=== PATIENT | female | born 1965 | race Caucasian/White ===

== ENCOUNTER 2017-11-29 19:07 | Emergency (ER) | payer OTHER ==
[2017-11-29] MEDS ORDERED: Sodium Chloride 0.9% 1,000 ML IV ONE (19:53)
[2017-11-29] MEDS ORDERED: HYDROmorphone 1 mg/mL 1mL Syr IVP STA ×2 (19:54→22:31)
--- NOTE | 2017-11-29 20:01 | ED Physician Chart ---
ED Chief Complaint/HPI - Patient Information Date Seen:: 11/29/17 Time Seen:: 19:45 Chief Complaint:: headache History of Present Illness:: 2-1/2 days ago patient developed a poking sensation in the right congregation. When she got pain all over the entire forehead. Then the pain moved to the entire right side of her head. She vomited 3 more times. She had no fever. Patient' s last equally severe headache was one week ago. Patient's current headache has the same pattern as her previous migraine headaches. Neither Toradol nor Imitrex have worked for her headaches in the past. She states she usually gets IV fluids, IV medication for nausea, and IV Dilaudid. Allergies:: Allergies Allergy/AdvReac Type Severity Reaction Status Date / Time Penicillins Allergy Verified 11/29/17 19:33 sulfamethoxazole Allergy Verified 11/29/17 19:33 Vitals:: Vital Signs - 8 hr 11/29/17 19:10 Temp 98.7 F HR 79 RR 18 BP 166/94 O2 Sat % 96 Historian:: Patient Review:: Nurse's Note Reviewed ED Review of Systems - Review of Systems General/Constitutional: No fever, No chills, No weight loss, No weakness, No diaphoresis, No edema, No loss of appetite Skin: No skin lesions, No rash, No bruising Head: No headache, No light-headedness Eyes: No loss of vision, No pain, No diplopia ENT: No earache, No nasal drainage, No sore throat, No tinnitus Neck: No neck pain, No swelling, No thyromegaly, No stiffness, No mass noted Cardio Vascular: No chest pain, No palpitations, No PND, No orthopnea, No edema Pulmonary: No SOB, No cough, No sputum, No wheezing GI: Nausea, Vomiting, No diarrhea, No pain, No melena, No hematochezia, No constipation, No hematemesis G/U: No dysuria, No frequency, No hematuria Musculoskeletal: No bone or joint pain, No back pain, No muscle pain Endocrine: No polyuria, No polydipsia Psychiatric: No prior psych history, No depression, No anxiety, No suicidal ideation Hematopoietic: No bruising, No lymphadenopathy Allergic/Immuno: No urticaria, No angioedema Neurological: No syncope, No focal symptoms, No weakness, No paresthesia, No headache, No seizure, No dizziness, No confusion, No vertigo ED Past Medical History - Past Medical History Past Medical History: HTN, Other (migraine headaches; depression; anxiety; migraine headache induced hypertension) Family History: Diabetes Melitus, Other (depression) Social History: Non Smoker, No Alcohol Surgical History: Hysterectomy Psychiatricy History: Depression, Other (anxiety) Medication: Reviewed Family Medical History - Family Member Mother Hx Family Diabetes: Yes ED Physical Exam - Physical Examination General/Constitutional: Awake, Well-developed, well-nourished, Alert, No distress, GCS 15, Non-toxic appearing, Ambulatory Head: Atraumatic Eyes: Lids, conjuctiva normal, PERRL, EOMI Other Eyes comments:: Optic disc appears sharp although difficult to visualize secondary to photophobia Skin: Nl inspection, No rash, No skin lesions, No ecchymosis, Well hydrated, No lymphadenopathy ENMT: External ears, nose nl, Nasal exam nl, Lips, teeth, gums nl Neck: Nontender, Full ROM w/o pain, No JVD, No nuchal rigidity, No bruit, No mass, No stridor Respiratory: Nl effort/Exclusion, Clear to Auscultation, No Wheeze/Rhonchi/Rales Cardio Vascular: RRR, No murmur, gallop, rubs, NL S1 S2 GI: No tenderness/rebounding/guarding, No organomegaly, No hernia, Normal BS's, Nondistended, No mass/bruits, No McBurney tenderness : No CVA tenderness Extremities: No tenderness or effusion, Full ROM, normal strength in all extremities, No edema, Normal digits & nails Neuro/Psych: Alert/oriented, DTR's symmetric, Normal sensory exam, Normal motor strength, Judgement/insight normal, Mood normal, Normal gait, No focal deficits Misc: Normal back, No paraspinal tenderness ED Labs/Radiology/EKG Results - Lab Results Comments:: At 2230 patient felt better but her headache was apparently still significant. I will give patient another 1 mg of IV Dilaudid and she will be discharged. Plan was to give the patient Decadron 8 mg intravenously to decrease the chance of headache recurrence but she says she's had Decadron before and it makes her feel weird. ED Septic Shock - . Is Septic Shock (SBP<90, OR Lactate>4 mmol\L) present?: No - <6hrs of presentation: Vital Signs: Vital Signs - 8 hr 11/29/17 19:10 Temp 98.7 F HR 79 RR 18 BP 166/94 O2 Sat % 96 ED Reassessment (Disposition) - Reassessment Reassessment Condition:: Improved - Diagnosis Diagnosis:: Migraine headache - Aftercare/Follow up Instructions Aftercare/Follow-Up Instructions:: Refer to Discharge Instructions - Patient Disposition Discharge/Transfer:: Home Condition at Disposition:: Stable, Improved
[2017-11-29] MEDS ORDERED: HYDROmorphone 1 mg/mL 1mL Syr ONE ×2 (21:26→22:33)
== END 2017-11-29 22:50 | disposition home or self-care (01) ==
LOC: ER 19:07
DX: G43.909 Migraine, unspecified, not intractable, without status migrainosus (principal); I10 Essential (primary) hypertension; Z90.710 Acquired absence of both cervix and uterus; Z88.0 Allergy status to penicillin; Z88.2 Allergy status to sulfonamides
CPT/HCPCS: 99284; 96374; 96375; 96376; J2405; J1170; J7030; Z7502

== ENCOUNTER 2018-01-16 20:04 | Emergency (ER) | payer OTHER ==
[2018-01-16] MEDS ORDERED: Sodium Chloride 0.9% 1,000 ML IV ONE (20:31)
--- NOTE | 2018-01-16 20:38 | ED Physician Chart ---
ED Chief Complaint/HPI - Patient Information Date Seen:: 01/16/18 Time Seen:: 20:00 Chief Complaint:: Headaches History of Present Illness:: onset x 3 days of intermittent, bilateral throbbing parietal H/As with N/V x 3; pt denies trauma, LOC, ALOC, AMS, decreased activity, visual or gait changes, E/ As, S/T, neck pain, weakness, dizziness, paresthesias, vertigo, cough, C/P, SOB , Abd. Pain, A/D/C, fever, chills, or urinary s/s Allergies:: Allergies Allergy/AdvReac Type Severity Reaction Status Date / Time Penicillins Allergy Verified 11/29/17 19:33 sulfamethoxazole Allergy Verified 11/29/17 19:33 Historian:: Patient Review:: Nurse's Note Reviewed ED Review of Systems - Review of Systems General/Constitutional: No fever, No chills, No weight loss, No weakness, No diaphoresis, No edema, No loss of appetite Skin: No skin lesions, No rash, No bruising Head: No headache, No light-headedness Eyes: No loss of vision, No pain, No diplopia ENT: No earache, No nasal drainage, No sore throat, No tinnitus Neck: No neck pain, No swelling, No thyromegaly, No stiffness, No mass noted Cardio Vascular: No chest pain, No palpitations, No PND, No orthopnea, No edema Pulmonary: No SOB, No cough, No sputum, No wheezing GI: Nausea, Vomiting, Diarrhea, No pain, No melena, No hematochezia, No constipation, No hematemesis G/U: No dysuria, No frequency, No hematuria, No nacturia Supervisor Photocomposition: No vaginal discharge, No abnormal vaginal bleed, No contraction Musculoskeletal: No bone or joint pain, No back pain, No muscle pain Endocrine: No polyuria, No polydipsia Psychiatric: No prior psych history, No depression, No anxiety, No suicidal ideation, No homicidal ideation, No auditory hallucination, No visual hallucination Hematopoietic: No bruising, No lymphadenopathy Allergic/Immuno: No urticaria, No angioedema Neurological: No syncope, No focal symptoms, No weakness, No paresthesia, Headache, No seizure, No dizziness, No confusion, No vertigo ED Past Medical History - Past Medical History Obtainable: Yes Past Medical History: Other (Migraine Headaches) Family History: HTN Social History: Non Smoker, No Alcohol, No Drug Use, Single Surgical History: None Psychiatricy History: None Medication: Reviewed Family Medical History - Family Member Mother Hx Family Diabetes: Yes ED Physical Exam - Physical Examination General/Constitutional: Awake, Well-developed, well-nourished, Alert, No distress, GCS 15, Non-toxic appearing, Ambulatory Head: Atraumatic Eyes: Lids, conjuctiva normal, PERRL, EOMI Other Eyes comments:: PERRLA; Fundi: benign; EOMs: WNL; Skin: Nl inspection, No rash, No skin lesions, No ecchymosis, Well hydrated, No lymphadenopathy ENMT: External ears, nose nl, TM canals nl, Nasal exam nl, Lips, teeth, gums nl , Oropharynx nl, Tonsils nl Other ENMT comments:: TMJs: WNL Neck: Nontender, Full ROM w/o pain, No JVD, No nuchal rigidity, No bruit, No mass, No stridor Other Neck comments:: Supple; no meningeal signs; no cervical tenderness; no bruits Respiratory: Nl effort/Exclusion, Clear to Auscultation, No Wheeze/Rhonchi/Rales Cardio Vascular: RRR, No murmur, gallop, rubs, NL S1 S2, Carotid/Femoral/Distal pulses equal bilaterally GI: No tenderness/rebounding/guarding, No organomegaly, No hernia, Normal BS's, Nondistended, No mass/bruits, No McBurney tenderness, Rectum exam nl Other GI comments:: no pulsatile masses : No CVA tenderness Extremities: No tenderness or effusion, Full ROM, normal strength in all extremities, No edema, Normal digits & nails Neuro/Psych: Alert/oriented, DTR's symmetric, Normal sensory exam, Normal motor strength, Judgement/insight normal, Mood normal, Normal gait, No focal deficits Other Neuro/Psych comments:: no focal signs Misc: Normal back, No paraspinal tenderness ED Labs/Radiology/EKG Results - Lab Results Comments:: Reviewed - Radiology Results Comments:: NAD - EKG Interpretations EKG Time:: 20:30 Rate & Rhythm: 98; NSR Comments:: non-specific st-t changes ED Septic Shock - . Is Septic Shock (SBP<90, OR Lactate>4 mmol\L) present?: No ED Reassessment (Disposition) - Reassessment Reassessment:: pt tolerated po fluids well in ER; pt is asymptomatic upon discharge Reassessment Condition:: Improved - Diagnosis Diagnosis:: Dx: Headaches; N/V/D; Gastroenteritis; AGE; Gastritis; Vascular Cephalgia; Migraine Headaches - Aftercare/Follow up Instructions Aftercare/Follow-Up Instructions:: Counseled pt regarding lab results/diagnosis & need follow up, Refer to Discharge Instructions, Counseled pt & family regarding lab results/diagnosis & need follow up - Patient Disposition Discharge/Transfer:: Home Condition at Disposition:: Stable, Improved (RTER prn if existing s/s reoccur and/or get worse and/or any other new s/s occur; X-Rays Instructions; ACIs given for all above Dx; Refer to Neurologist/GI Specialist/Core Winder Machine Operator NISHA; F/U with PMD in one day or prn; RTER prn if concerned)
[2018-01-16 21:12] LABS: % BASOPHILS 0.9 % (0.0-2.0); % EOSINOPHILS 2.7 % (0.0-5.0); % LYMPHOCYTES 39.8 % (20.0-50.0); % MONOCYTES 5.7 % (2.0-10.0); % NEUTROPHILS 50.9 % (40.0-80.0); BASOPHILE ABSOLUTE 0.1 Th/cumm (0-0.2); EOSINOPHILE ABSOLUTE 0.2 Th/cmm (0.1-0.4); HEMATOCRIT 40.5 % (41.0-60); HEMOGLOBIN 13.6 gm/dL (12-16); LYMPHOCYTE ABSOLUTE 2.5 Th/cmm (1.5-3.0); MEAN CELL VOLUME 88.5 fl (81-100); MEAN CORPUSCULAR HEMOGLOBIN 29.6 pg (27.0-31.0); MEAN CORPUSCULAR HGB CONC 33.5 pg (28.0-36.0); MEAN PLATELET VOLUME 7.3 fl; MONOCYTE ABSOLUTE 0.4 Th/cmm (0.3-1.0); PLATELET COUNT 280 Th/cmm (150-400); RED BLOOD COUNT 4.58 Mil/cmm (3.80-5.10); RED CELL DISTRIBUTION WIDTH 11.9 % (11.5-20.0); WHITE BLOOD COUNT 6.2 Th/cmm (4.8-10.8)
[2018-01-16] MEDS ORDERED: Morphine Sulfate 2 mg/mL 1mL Syr IV STA ×2 (21:18→22:52)
[2018-01-16] MEDS ORDERED: Morphine Sulfate 2 mg/mL 1mL Syr ONE ×2 (21:18→23:04)
[2018-01-16 21:22] LABS: PROTHROMBIN TIME (TEST) 10.4 SECONDS (9.5-11.5)
[2018-01-16 21:26] LABS: ALB/GLOB RATIO 1.7 (1.0-1.8); ALBUMIN 4.3 gm/dL (3.7-5.3); ALKALINE PHOSPHATASE 84 U/L (34-104); AMYLASE SERUM 46 U/L (29-103); ANION GAP 12.4 (7.0-16.0); BILIRUBIN,TOTAL 0.4 mg/dL (0.3-1.0); BUN - UREA NITROGEN 11 mg/dL (7-25); CARBON DIOXIDE 23.2 mEq/L (21.0-31.0); CHLORIDE 104 mEq/L (98-107); CHOLESTEROL 185 mg/dL (<200); CREATININE - SERUM 0.8 mg/dL (0.6-1.2); CREATININE KINASE 57 U/L (30-223); GFR AFRICAN-AMERICAN > 60.0 ml/min (>90); GFR NON AFRICAN-AMERICAN > 60.0 ml/min; GLUCOSE 110 mg/dL (70-105); HDL -HIGH DENSITY LIPOPROTEIN 42 mg/dL (23-92); LIPASE 13 U/L (11-82); POTASSIUM SERUM 3.6 mEq/L (3.5-5.1); SGOT 17 U/L (13-39); SGPT/ALT 17 U/L (7-52); SODIUM SERUM 136 mEq/L (136-145); TOTAL PROTEIN,SERUM 6.9 gm/dL (6.0-8.3); TRIGLYCERIDES 167 mg/dL (<150)
--- NOTE | 2018-01-17 10:52 | Diagnostic Imaging Report ---
CT scan of the brain without contrast History: Headache Total DLP equals 547 CTDI equals 30.4 Axial sections were obtained from the base of the skull to the vertex. There is a normal ventricular system size. No focal parenchymal lesions are seen. No evidence of any mass effect or shift of midline structures. No extra-axial masses or abnormal fluid collections. Impression: Negative examination
--- NOTE | 2018-01-17 10:53 | Diagnostic Imaging Report ---
CT scan cervical spine HISTORY: Pain Total DLP equals 221 CTDI equals 14.6 Axial sections were obtained through the cervical spine. Additional sagittal and coronal reformatted images are provided. Spur formation noted about the endplates of C4-1 slightly greater degree C5 and C6. Alignment is normal. No acute abnormalities. No fractures. The prevertebral soft tissues appear normal. IMPRESSION: 1. No acute focal bony abnormalities 2. Degenerative changes
== END 2018-01-16 23:20 | disposition home or self-care (01) ==
LOC: ER 20:04
DX: G43.909 Migraine, unspecified, not intractable, without status migrainosus (principal); G44.1 Vascular headache, not elsewhere classified; K52.9 Noninfective gastroenteritis and colitis, unspecified; K29.70 Gastritis, unspecified, without bleeding; Z88.0 Allergy status to penicillin; Z88.2 Allergy status to sulfonamides
CPT/HCPCS: 99285; 96374; 96375; 96376; 94760; 93005; 70450; 72125; 84484; 83880; 36415; 85025; 85610; 82150; 82550; 84703; 83690; 80053; 80061; Z7610; J2270 ×2; J2405; J7030

== ENCOUNTER 2018-01-20 14:29 | Emergency (ER) | payer OTHER ==
[2018-01-20] MEDS ORDERED: Morphine Sulfate 2 mg/mL 1mL Syr IV STA (15:05)
[2018-01-20] MEDS ORDERED: Morphine Sulfate 2 mg/mL 1mL Syr ONE ×2 (15:09→15:57)
[2018-01-20] MEDS ORDERED: Sodium Chloride 0.9% 500 ML IV ONE (15:22)
[2018-01-20] MEDS ORDERED: Morphine Sulfate 2 mg/mL 1mL Syr IVP STA (15:54)
--- NOTE | 2018-01-20 16:28 | ED Physician Chart ---
ED Chief Complaint/HPI - Patient Information Date Seen:: 01/20/18 Time Seen:: 14:40 Chief Complaint:: chronic migraine VALDES's History of Present Illness:: chronic migraine VALDES's. Usually receives Botox injections. She is visiting here from [place]. Was here in the ER on Sunday of this week. Allergies:: Allergies Allergy/AdvReac Type Severity Reaction Status Date / Time ketorolac [From Toradol] Allergy Verified 01/16/18 20:43 Penicillins Allergy Verified 01/16/18 20:43 sulfamethoxazole Allergy Verified 01/16/18 20:43 Vitals:: Vital Signs - 8 hr 01/20/18 01/20/18 14:40 16:20 Temp 98.1 F 98.5 F HR 92 69 RR 21 17 BP 166/89 116/73 O2 Sat % 95 97 ED Review of Systems - Review of Systems General/Constitutional: No fever, No chills, No weight loss, No weakness, No diaphoresis, No edema, No loss of appetite Skin: No skin lesions, No rash, No bruising Head: Headache Eyes: No loss of vision, No pain, No diplopia ENT: No earache, No nasal drainage, No sore throat, No tinnitus Neck: No neck pain, No swelling, No thyromegaly, No stiffness, No mass noted Cardio Vascular: No chest pain, No palpitations, No PND, No orthopnea, No edema Pulmonary: No SOB, No cough, No sputum, No wheezing GI: No nausea, No vomiting, No diarrhea, No pain, No melena, No hematochezia, No constipation, No hematemesis G/U: No dysuria, No frequency, No hematuria Musculoskeletal: No bone or joint pain, No back pain, No muscle pain Endocrine: No polyuria, No polydipsia Psychiatric: No prior psych history, No depression, No anxiety, No suicidal ideation Hematopoietic: No bruising, No lymphadenopathy Allergic/Immuno: No urticaria, No angioedema Neurological: No syncope, No focal symptoms, No weakness, No paresthesia, No headache, No seizure, No dizziness, No confusion, No vertigo ED Past Medical History - Past Medical History Obtainable: Yes Past Medical History: Other (migraines) Family History: Other (not contributory) Family Medical History - Family Member Mother History Unknown: Yes Ethnicity: Non- Living Status: Still Living Hx Family Diabetes: Yes Other Medical History: Migraine Headaches ED Physical Exam - Physical Examination General/Constitutional: Awake, Well-developed, well-nourished, Alert, GCS 15, Non-toxic appearing, Ambulatory Head: Atraumatic Eyes: Lids, conjuctiva normal, PERRL, EOMI Skin: Nl inspection, No rash, No skin lesions, No ecchymosis, Well hydrated, No lymphadenopathy ENMT: External ears, nose nl, Nasal exam nl, Lips, teeth, gums nl Neck: Nontender, Full ROM w/o pain, No JVD, No nuchal rigidity, No bruit, No mass, No stridor Respiratory: Nl effort/Exclusion, Clear to Auscultation, No Wheeze/Rhonchi/Rales Cardio Vascular: RRR, No murmur, gallop, rubs, NL S1 S2 GI: No tenderness/rebounding/guarding, No organomegaly, No hernia, Normal BS's, Nondistended, No mass/bruits, No McBurney tenderness : No CVA tenderness Extremities: No tenderness or effusion, Full ROM, normal strength in all extremities, No edema, Normal digits & nails Neuro/Psych: Alert/oriented, Normal sensory exam, Normal motor strength, Judgement/insight normal, Mood normal, Normal gait, No focal deficits Misc: Normal back, No paraspinal tenderness ED Assessment - Assessment Assessment/Comments:: patient feels that her headache is down from a 10 out of 10 to a 5 out of 10 post treatment. Just wants the morphine. Doesn't care about the IV fluids. ED Septic Shock - . Is Septic Shock (SBP<90, OR Lactate>4 mmol\L) present?: No - <6hrs of presentation: Vital Signs: Vital Signs - 8 hr 01/20/18 01/20/18 14:40 16:20 Temp 98.1 F 98.5 F HR 92 69 RR 21 17 BP 166/89 116/73 O2 Sat % 95 97 ED Reassessment (Disposition) - Reassessment Reassessment Condition:: Improved - Diagnosis Diagnosis:: Chronic migraines - Aftercare/Follow up Instructions Notes:: please follow up with a neurologist in the area. - Patient Disposition Discharge/Transfer:: Home
== END 2018-01-20 16:30 | disposition home or self-care (01) ==
LOC: ER 14:29
DX: G43.709 Chronic migraine without aura, not intractable, without status migrainosus (principal); Z88.0 Allergy status to penicillin; Z88.2 Allergy status to sulfonamides; Z88.6 Allergy status to analgesic agent
CPT/HCPCS: 99284; 96374; 96375; 96376; J2270 ×2; J2405; J7040; Z7502

== ENCOUNTER 2018-01-30 15:35 | Emergency (ER) | payer OTHER ==
--- NOTE | 2018-01-30 16:45 | ED Physician Chart ---
ED Chief Complaint/HPI - Patient Information Date Seen:: 01/30/18 Time Seen:: 16:30 Chief Complaint:: Headaches History of Present Illness:: onset x 3 days of intermittent, dull, diffuse H/As; no report of/pt denies trauma, LOC, ALOC, AMS, decreased activity, visual or gait changes, neck pain, weakness, dizziness, paresthesias, vertigo, C/P, SOB, cough, Abd. Pain, A/N/V/D/ C, fever, chills, or urinary s/s; LNMP: 01/23/18; pt denies Allergies:: Allergies Allergy/AdvReac Type Severity Reaction Status Date / Time ketorolac [From Toradol] Allergy Verified 01/16/18 20:43 Penicillins Allergy Verified 01/16/18 20:43 sulfamethoxazole Allergy Verified 01/16/18 20:43 Vitals:: Vital Signs - 8 hr 01/30/18 16:30 Temp 98.2 F HR 77 RR 18 BP 150/84 O2 Sat % 95 Historian:: Patient Review:: Nurse's Note Reviewed <Yoel Stringer - Last Filed: 01/30/18 16:39> - Patient Information Allergies:: Allergies Allergy/AdvReac Type Severity Reaction Status Date / Time ketorolac [From Toradol] Allergy Verified 01/16/18 20:43 Penicillins Allergy Verified 01/16/18 20:43 sulfamethoxazole Allergy Verified 01/16/18 20:43 Vitals:: Vital Signs - 8 hr 01/30/18 16:30 Temp 98.2 F HR 77 RR 18 BP 150/84 O2 Sat % 95 <Isaac Ogden - Last Filed: 01/30/18 23:24> ED Review of Systems - Review of Systems General/Constitutional: No fever, No chills, No weight loss, No weakness, No diaphoresis, No edema, No loss of appetite Skin: No skin lesions, No rash, No bruising Head: Headache, No light-headedness Eyes: No loss of vision, No pain, No diplopia ENT: No earache, No nasal drainage, No sore throat, No tinnitus Neck: No neck pain, No swelling, No thyromegaly, No stiffness, No mass noted Cardio Vascular: No chest pain, No palpitations, No PND, No orthopnea, No edema Pulmonary: No SOB, No cough, No sputum, No wheezing GI: No nausea, No vomiting, No diarrhea, No pain, No melena, No hematochezia, No constipation, No hematemesis G/U: No dysuria, No frequency, No hematuria, No nacturia Hand Method Lasting Machine Operator: No vaginal discharge, No abnormal vaginal bleed, No contraction Musculoskeletal: No bone or joint pain, No back pain, No muscle pain Endocrine: No polyuria, No polydipsia Psychiatric: No prior psych history, No depression, No anxiety, No suicidal ideation Hematopoietic: No bruising, No lymphadenopathy Allergic/Immuno: No urticaria, No angioedema Neurological: No syncope, No focal symptoms, No weakness, No paresthesia, Headache, No seizure, No dizziness, No confusion, No vertigo <AltagraciaYoel segura - Last Filed: 01/30/18 16:39> ED Past Medical History - Past Medical History Obtainable: Yes Past Medical History: Other (Migraine Headaches) Family History: HTN Social History: Non Smoker, No Alcohol, No Drug Use, Surgical History: None Psychiatricy History: None Medication: Reviewed <Yoel Stringer - Last Filed: 01/30/18 16:39> Family Medical History - Family Member Mother History Unknown: Yes Ethnicity: Non- Living Status: Still Living Hx Family Diabetes: Yes <AltagraciaYoel segura - Last Filed: 01/30/18 16:39> ED Physical Exam - Physical Examination General/Constitutional: Awake, Well-developed, well-nourished, Alert, No distress, GCS 15, Non-toxic appearing, Ambulatory Head: Atraumatic Eyes: Lids, conjuctiva normal, PERRL, EOMI Skin: Nl inspection, No rash, No skin lesions, No ecchymosis, Well hydrated, No lymphadenopathy ENMT: External ears, nose nl, TM canals nl, Nasal exam nl, Lips, teeth, gums nl , Oropharynx nl, Tonsils nl Neck: Nontender, Full ROM w/o pain, No JVD, No nuchal rigidity, No bruit, No mass, No stridor Respiratory: Nl effort/Exclusion, Clear to Auscultation, No Wheeze/Rhonchi/Rales Cardio Vascular: RRR, No murmur, gallop, rubs, NL S1 S2, Carotid/Femoral/Distal pulses equal bilaterally GI: No tenderness/rebounding/guarding, No organomegaly, No hernia, Normal BS's, Nondistended, No mass/bruits, No McBurney tenderness : No CVA tenderness Extremities: No tenderness or effusion, Full ROM, normal strength in all extremities, No edema, Normal digits & nails Neuro/Psych: Alert/oriented, DTR's symmetric, Normal sensory exam, Normal motor strength, Judgement/insight normal, Mood normal, Normal gait, No focal deficits Misc: Normal back, No paraspinal tenderness <Yoel Stringre - Last Filed: 01/30/18 16:39> ED Labs/Radiology/EKG Results - Lab Results Results: Laboratory Tests 01/30/18 01/30/18 01/30/18 16:24 20:05 20:05 WBC 10.0 RBC 4.75 Hgb 14.2 Hct 42.3 MCV 89.1 MCH 30.0 MCHC Differential 33.6 RDW 12.5 Plt Count 281 MPV 6.9 Neutrophils % 61.5 Lymphocytes % 32.0 Monocytes % 4.7 Eosinophils % 1.4 Basophils % 0.4 Sodium 135 L Potassium 3.7 Chloride 103 Carbon Dioxide 21.9 Anion Gap 13.8 BUN 12 Creatinine 0.7 Est GFR ( Amer) > 60.0 Est GFR (Non-Af Amer) > 60.0 BUN/Creatinine Ratio 17.1 Glucose 89 Calcium 8.8 Amylase 49 Lipase 13 Urine Test NEGATIVE <Isaac Ogden - Last Filed: 01/30/18 23:24> ED Assessment - Assessment General Assessment: Yesterday patient had gradual onset of right-sided headache. She vomited 3 times yesterday and 3 times today. Patient's migraines are usually right sided. Last equally severe headache was about 6 months ago. Patient has a history of depression as well as migraine headaches physical examination: well -developed well-nourished no acute distress. Eyes pupils equal round reactive to light; left optic disc is sharp; only the lateral aspect of the right optic disc was visualized and was noted to be sharp. Ears nose and throat normal. Neck supple; no focal neurological deficit. At 2320 patient's headache pain had decreased to 5-6 out of 10. <Isaac Ogden - Last Filed: 01/30/18 23:24> ED Septic Shock - . Is Septic Shock (SBP<90, OR Lactate>4 mmol\L) present?: No - <6hrs of presentation: Vital Signs: Vital Signs - 8 hr 01/30/18 16:30 Temp 98.2 F HR 77 RR 18 BP 150/84 O2 Sat % 95 <Yoel Stringer - Last Filed: 01/30/18 16:39> - <6hrs of presentation: Vital Signs: Vital Signs - 8 hr 01/30/18 16:30 Temp 98.2 F HR 77 RR 18 BP 150/84 O2 Sat % 95 <Isaac Ogden - Last Filed: 01/30/18 23:24> ED Reassessment (Disposition) - Reassessment Reassessment Condition:: Improved - Diagnosis Diagnosis:: Migraine Headaches; Headaches <Yoel Stringer - Last Filed: 01/30/18 16:39> - Patient Disposition Discharge/Transfer:: Home Condition at Disposition:: Stable, Improved <Isaac Ogden - Last Filed: 01/30/18 23:24>
[2018-01-30] MEDS ORDERED: Morphine Sulfate 2 mg/mL 1mL Syr IM STA (19:10)
[2018-01-30 20:20] LABS: % BASOPHILS 0.4 % (0.0-2.0); % EOSINOPHILS 1.4 % (0.0-5.0); % MONOCYTES 4.7 % (2.0-10.0); % NEUTROPHILS 61.5 % (40.0-80.0); EOSINOPHILE ABSOLUTE 0.1 Th/cmm (0.1-0.4); HEMATOCRIT 42.3 % (41.0-60); HEMOGLOBIN 14.2 gm/dL (12-16); LYMPHOCYTE ABSOLUTE 3.2 Th/cmm (1.5-3.0); MEAN CELL VOLUME 89.1 fl (81-100); MEAN CORPUSCULAR HGB CONC 33.6 pg (28.0-36.0); MEAN PLATELET VOLUME 6.9 fl; MONOCYTE ABSOLUTE 0.5 Th/cmm (0.3-1.0); NEUTROPHILE ABSOLUTE 6.2 Th/cmm (1.8-8.0); PLATELET COUNT 281 Th/cmm (150-400); RED BLOOD COUNT 4.75 Mil/cmm (3.80-5.10); RED CELL DISTRIBUTION WIDTH 12.5 % (11.5-20.0)
[2018-01-30 20:37] LABS: AMYLASE SERUM 49 U/L (29-103); ANION GAP 13.8 (7.0-16.0); BUN - UREA NITROGEN 12 mg/dL (7-25); CALCIUM SERUM 8.8 mg/dL (8.6-10.3); CARBON DIOXIDE 21.9 mEq/L (21.0-31.0); CHLORIDE 103 mEq/L (98-107); CREATININE - SERUM 0.7 mg/dL (0.6-1.2); GFR AFRICAN-AMERICAN > 60.0 ml/min (>90); GFR NON AFRICAN-AMERICAN > 60.0 ml/min; GLUCOSE 89 mg/dL (70-105); LIPASE 13 U/L (11-82); POTASSIUM SERUM 3.7 mEq/L (3.5-5.1); SODIUM SERUM 135 mEq/L (136-145)
[2018-01-30] MEDS ORDERED: Morphine Sulfate 2 mg/mL 1mL Syr ONE (21:44)
[2018-01-30] MEDS: Sodium Chloride 0.9% 1,000 ML IV ONE (21:46)
[2018-01-30] MEDS: Morphine Sulfate 2 mg/mL 1mL Syr IV STA (22:02)
[2018-01-30] MEDS ORDERED: HYDROmorphone 1 mg/mL 1mL Syr ONE (22:47)
[2018-01-30] MEDS: HYDROmorphone 1 mg/mL 1mL Syr IVP STA (22:54)
--- NOTE | 2018-01-31 08:49 | Diagnostic Imaging Report ---
Head CT without intravenous contrast Indication: Headache Comparison: CT head on 01/16/2018 Technique: Axial images were obtained from the vertex to the skull base without IV contrast. Coronal reconstructions were made. Total DLP: 628, CTDI34.8 FINDINGS: Images of the brain obtained without contrast demonstrate no acute hemorrhage. No mass lesions identified. The ventricles and basal cisterns are patent. The velarde-white matter differentiation is preserved. There is no mass effect or midline shift. No skull fractures identified. No soft tissue swelling. The paranasal sinuses are clear. IMPRESSION: No acute intracranial abnormality.
--- NOTE | 2018-01-31 08:55 | Diagnostic Imaging Report ---
CT cervical spine without IV contrast HISTORY: Pain COMPARISON: CT cervical spine on 01/16/2018 Technique: Axial images were obtained from the skull base to the upper thoracic spine without IV contrast. Multiplanar reconstructions were made. Total DLP: 313, CTDI19.9 FINDINGS: Images of the cervical spine obtained without contrast demonstrate no evidence of acute fracture or subluxation. There is straightening of the cervical lordosis. Mild degenerative changes are seen greatest at C4/C5 with anterior disc osteophyte spurs seen at this level. No prevertebral soft tissue swelling. IMPRESSION: No evidence of acute fracture or subluxation. 5Straightening of the cervical lordosis which may be due to positioning versus muscle spasm. Mild degenerative changes.
== END 2018-01-30 23:52 | disposition home or self-care (01) ==
LOC: ER 15:35
DX: G43.909 Migraine, unspecified, not intractable, without status migrainosus (principal); Z88.0 Allergy status to penicillin; Z88.2 Allergy status to sulfonamides; Z88.6 Allergy status to analgesic agent
CPT/HCPCS: 99285; 96374; 96375; 70450; 72125; 36415; 85025; 82150; 81025; 83690; 80048; J2270; J2405; J1170

== ENCOUNTER 2018-12-30 11:52 | Emergency (ER) | payer OTHER ==
--- NOTE | 2018-12-30 14:32 | Diagnostic Imaging Report ---
CT scan of the brain without contrast History: Headache Total DLP equals 544 CTDI equals 33.4 Axial sections were obtained from the base of the skull to the vertex. There is a normal ventricular system size. No focal parenchymal lesions are seen. No evidence of any mass effect or shift of midline structures. No extra-axial masses or abnormal fluid collections. Impression: Negative examination
--- NOTE | 2018-12-30 14:33 | Diagnostic Imaging Report ---
CT scan cervical spine HISTORY: Pain Total DLP equals 390 CTDI equals 19.9 Axial sections were obtained through the cervical spine. Additional sagittal and coronal reformatted images are provided. There is slight reversal of the cervical lordosis which may be associated with spasm. Alignment is normal. Small spur formation noted off the endplates of C4 and to a slightly greater degree C5 and C6. No acute abnormalities. No fractures. The prevertebral soft tissues appear normal. Mild atherosclerotic calcification seen within the carotid arteries. IMPRESSION: 1. No acute abnormalities 2. Mild degenerative changes 3. Minimal atherosclerotic vascular changes
--- NOTE | 2018-12-30 15:00 | ED Physician Chart ---
ED Chief Complaint/HPI - Patient Information Date Seen:: 12/30/18 Time Seen:: 12:45 Chief Complaint:: Headaches History of Present Illness:: onset x 3 days of intermittent, dull, diffuse H/As; pt denies trauma, LOC, ALOC , AMS, decreased activity, syncope, NS, visual or gait changes, weakness, dizziness, paresthesias, vertigo, E/as, S/T, neck pain, cough, C/P, SOB, Abd. pain, A/N/V/D/C, fever, chills, bleeding, or urinary s/s; LNMP: 12/25/18; pt denies ; pt is eating and urinating well; pt last urinated one hour PATIENT [employer] Allergies:: Allergies Allergy/AdvReac Type Severity Reaction Status Date / Time ketorolac [From Toradol] Allergy Verified 01/16/18 20:43 Penicillins Allergy Verified 01/16/18 20:43 sulfamethoxazole Allergy Verified 01/16/18 20:43 metoclopramide [From Reglan] AdvReac Verified 12/30/18 12:50 Vitals:: Vital Signs - 8 hr 12/30/18 12:43 Temp 98.2 F HR 86 RR 16 BP 164/81 O2 Sat % 98 Historian:: Patient Review:: Nurse's Note Reviewed, Old Chart Reviewed ED Review of Systems - Review of Systems General/Constitutional: No fever, No chills, No weight loss, No weakness, No diaphoresis, No edema, No loss of appetite Skin: No skin lesions, No rash, No bruising Head: No headache, No light-headedness Eyes: No loss of vision, No pain, No diplopia ENT: No earache, No nasal drainage, No sore throat, No tinnitus Neck: No neck pain, No swelling, No thyromegaly, No stiffness, No mass noted Cardio Vascular: No chest pain, No palpitations, No PND, No orthopnea, No edema Pulmonary: No SOB, No cough, No sputum, No wheezing GI: No nausea, No vomiting, No diarrhea, No pain, No melena, No hematochezia, No constipation, No hematemesis G/U: No dysuria, No frequency, No hematuria, No nacturia Director Of Recruitment: No vaginal discharge, No abnormal vaginal bleed, No contraction Musculoskeletal: No bone or joint pain, No back pain, No muscle pain Endocrine: No polyuria, No polydipsia Psychiatric: No prior psych history, No depression, No anxiety, No suicidal ideation, No homicidal ideation, No auditory hallucination, No visual hallucination Hematopoietic: No bruising, No lymphadenopathy Allergic/Immuno: No urticaria, No angioedema Neurological: No syncope, No focal symptoms, No weakness, No paresthesia, Headache, No seizure, No dizziness, No confusion, No vertigo ED Past Medical History - Past Medical History Past Medical History: Other (Migraine Headaches) Family History: None Social History: Non Smoker, No Alcohol, No Drug Use, Surgical History: None Psychiatricy History: None Medication: Reviewed Family Medical History - Family Member Mother History Unknown: Yes Ethnicity: Non- Living Status: Still Living Hx Family Diabetes: Yes ED Physical Exam - Physical Examination General/Constitutional: Awake, Well-developed, well-nourished, Alert, No distress, GCS 15, Non-toxic appearing, Ambulatory Head: Atraumatic Eyes: Lids, conjuctiva normal, PERRL, EOMI Other Eyes comments:: PERRLA; Fundi: benign; EOMs; WNL Skin: Nl inspection, No rash, No skin lesions, No ecchymosis, Well hydrated, No lymphadenopathy ENMT: External ears, nose nl, TM canals nl, Nasal exam nl, Lips, teeth, gums nl , Oropharynx nl, Tonsils nl Other ENMT comments:: TMJs: WNL Neck: Nontender, Full ROM w/o pain, No JVD, No nuchal rigidity, No bruit, No mass, No stridor Other Neck comments:: supple; no meningeal signs; no cervical tenderness; no bruits Respiratory: Nl effort/Exclusion, Clear to Auscultation, No Wheeze/Rhonchi/Rales Cardio Vascular: RRR, No murmur, gallop, rubs, NL S1 S2, Carotid/Femoral/Distal pulses equal bilaterally GI: No tenderness/rebounding/guarding, No organomegaly, No hernia, Normal BS's, Nondistended, No mass/bruits, No McBurney tenderness, Rectum exam nl Other GI comments:: no pulsatile masses : No CVA tenderness Extremities: No tenderness or effusion, Full ROM, normal strength in all extremities, No edema, Normal digits & nails Neuro/Psych: Alert/oriented, DTR's symmetric, Normal sensory exam, Normal motor strength, Judgement/insight normal, Mood normal, Normal gait, No focal deficits Other Neuro/Psych comments:: no focal signs Misc: Normal back, No paraspinal tenderness ED Labs/Radiology/EKG Results - Lab Results Results: Laboratory Tests 12/30/18 13:08 Urine Test NEGATIVE Comments:: Reviewed - Radiology Results Comments:: X-Rays: NAD ED Septic Shock - . Is Septic Shock (SBP<90, OR Lactate>4 mmol\L) present?: No - <6hrs of presentation: Vital Signs: Vital Signs - 8 hr 12/30/18 12:43 Temp 98.2 F HR 86 RR 16 BP 164/81 O2 Sat % 98 ED Reassessment (Disposition) - Reassessment Reassessment:: pt tolerated po fluids well in ER; pt is asymptomatic upon discharge Reassessment Condition:: Improved - Diagnosis Diagnosis:: Headaches; Vascular Cephalgia; Migraine Headaches; HTN - Aftercare/Follow up Instructions Aftercare/Follow-Up Instructions:: Counseled pt regarding lab results/diagnosis & need follow up, Refer to Discharge Instructions, Counseled pt & family regarding lab results/diagnosis & need follow up Medication Prescribed:: Rx: Tylenol #3: one tablet po tid prn Headaches/pain (#10); take medications as prescribed; Have Blood Pressure re-checked in one day by PMD - Patient Disposition Discharge/Transfer:: Home Condition at Disposition:: Stable, Improved (X-Rays Instructions; Have BP re- checked in one day by PMD; RTER prn if existing s/s reoccur and/or get worse and /or any other new s/s occur; ACIs given for all above Dx; Refer to Neurologist/ [facility] Program Manager NISHA; F/U with PMD in one day or prn; RTER prn if concerned)
== END 2018-12-30 14:53 | disposition home or self-care (01) ==
LOC: ER 11:52
DX: G43.909 Migraine, unspecified, not intractable, without status migrainosus (principal); G44.1 Vascular headache, not elsewhere classified; I10 Essential (primary) hypertension; Z88.0 Allergy status to penicillin; Z88.2 Allergy status to sulfonamides; Z88.6 Allergy status to analgesic agent; Z88.8 Allergy status to other drugs, medicaments and biological substances
CPT/HCPCS: 70450-TC; 72125-TC; 81025-TC